=== PATIENT | male | born 1960 | race Two or more races ===

== ENCOUNTER 2024-01-05 18:04 | Emergency (ER) | payer OTHER ==
[~2024-01-05] VITALS: Ht 172.7 cm; Wt 78.2 kg
[2024-01-05 18:25] VITALS: O2SAT 98
[2024-01-05 18:32] LABS: Urine Bacteria None Seen /hpf (None Seen)
[2024-01-05 18:45] LABS: Urine Blood TRACE /uL (Negative); Urine Clarity Clear (Clear); Urine Color Light-Yellow (Yellow); Urine Protein, UAD Negative (Negative); Urine Specific Gravity 1.016 (1.001-1.035); Urine Urobilinogen Normal (Negative); Urine WBC 2 /hpf (0 - 3); Urine pH 5.5 (5.0-9.0)
[2024-01-05 22:12] VITALS: BP 138/72; PULSE 93; RESP 17; TEMP 98.3
== END 2024-01-05 22:53 | disposition home or self-care (01) ==
LOC: ER 18:04
DX: R33.9 Retention of urine, unspecified (principal); I12.9 Hypertensive chronic kidney disease with stage 1 through stage 4 chronic kidney disease, or unspecified chronic kidney disease; N18.9 Chronic kidney disease, unspecified
CPT/HCPCS: 51702; 81001

== ENCOUNTER 2024-01-25 10:39 | Emergency (ER) | payer OTHER ==
[~2024-01-25] VITALS: Ht 172.7 cm; Wt 78.8 kg
[2024-01-25 11:08] LABS: Urine Bacteria None Seen /hpf (None Seen)
[2024-01-25 11:13] LABS: Urine Blood 1+ /uL (Negative); Urine Clarity Clear (Clear); Urine Color Colorless (Yellow); Urine Protein, UAD Negative (Negative); Urine Specific Gravity 1.004 (1.001-1.035); Urine Urobilinogen Normal (Negative); Urine WBC <1 /hpf (0 - 3); Urine pH 6.5 (5.0-9.0)
[2024-01-25] MEDS: KETOROLAC TROMETH 60MG/2ML VIAL IM ONE (11:16)
[2024-01-25 11:40] LABS: Basophils # (auto) 0 10 ^3/uL (0-0.2); Basophils % (auto) 0.5 % (0.0-2.0); Eosinophils # (auto) 0.1 10 ^3/uL (0-0.8); Eosinophils % (auto) 0.9 % (0.0-7.0); Hematocrit 42.8 % (41.0-53.0); Hemoglobin 14.5 g/dL (13.5-17.5); Lymphocytes # (auto) 1.1 10 ^3/uL (0.4-5.4); Lymphocytes % (auto) 17.9 % (10.0-50.0); Mean Corpuscular Hemoglobin 31.5 pg (28.0-32.0); Mean Corpuscular Hgb Conc. 33.9 g/dL (32.0-36.0); Mean Corpuscular Volume 92.8 fL (80.0-100.0); Monocytes # (auto) 0.6 10 ^3/uL (0-1.3); Monocytes % (auto) 10.2 % (0.0-12.0); Neutrophils # (auto) 4.4 10 ^3/uL (1.6-8.6); Neutrophils % (auto) 70.5 % (37.0-80.0); Nucleated Red Blood Cells % 0.1 %; Red Blood Cells 4.61 10^6/uL (4.5-5.90); Red Cell Distribution Width 13.6 % (11.8-14.3); White Blood Cell 6.3 10^3/uL (4.4-10.8)
[2024-01-25 11:52] LABS: Alanine Aminotransferase 22 U/L (7-40); Albumin 4.6 g/dL (3.2-4.8); Alkaline Phosphatase 48 U/L (46-116); Anion Gap 6 (5-15); Aspartate Aminotransferase 21 U/L (13-40); BUN/Creatinine Ratio 10.7 (10.0-20.0); Blood Urea Nitrogen 12 mg/dL (9-23); Calcium 10.1 mg/dL (8.7-10.4); Carbon Dioxide 28 mmol/L (20-30); Chloride 97 mmol/L (98-107); Glucose 99 mg/dL (74-106); Lipase 47 U/L (12-53); Potassium 3.8 mmol/L (3.5-5.1); Sodium 131 mmol/L (136-145)
[2024-01-25 11:53] LABS: Bilirubin, Total 0.8 mg/dL (0.2-1.0); Total Protein 7.6 g/dL (5.7-8.2)
[2024-01-25] MEDS ORDERED: ZOFR4T PO (14:29)
[2024-01-25] MEDS ORDERED: NAP500T PO (14:29)
[2024-01-25 14:42] VITALS: BP 163/67; PULSE 82; RESP 18; TEMP 97.8; O2SAT 96
== END 2024-01-25 14:42 | disposition home or self-care (01) ==
LOC: ER 10:39
DX: R10.31 Right lower quadrant pain (principal); I12.9 Hypertensive chronic kidney disease with stage 1 through stage 4 chronic kidney disease, or unspecified chronic kidney disease; N18.9 Chronic kidney disease, unspecified
CPT/HCPCS: 36415; 74176; 80053; 81001; 83605; 83690; 85025; 93005; 96372; 99285; J1885

== ENCOUNTER 2025-02-24 19:55 | Inpatient (IN) | payer OTHER ==
[~2025-02-24] VITALS: Ht 172.7 cm; Wt 78.8 kg
[~2025-02-24 19:55] MED LIST: NAP500T PO; ZOFR4T PO
--- NOTE | 2025-02-24 20:04 | ED.PDOC ---
HPI Comments HPI: PMHx: PSHx: Allergies: NKDA Reji: HPI: Poor Historian. 64-year-old male presents to emergency department for evaluation of two day history of midsternal chest pain nonradiating. No alleviating or precipitating factors. Pain is associated with shortness of breath. Denies any other acute symptoms. He went to urgent care today and was sent here for further evaluation. Past Medical History: Hypertension, arthritis, chronic back pain, bladder cancer in remission, myasthenia gravis Past Surgical History: Kidney surgery, bladder and prostate surgery. REVIEW OF SYSTEMS: CONSTITUTIONAL: Denies acute: fever, diaphoresis, chills, generalized weakness. HEAD: Denies acute: headache, photophobia Eyes: Denies acute: Double vision, vision loss, eye pain, eye discharge. EARS: Denies acute: tinnitus, hearing loss, ear discharge, ear pain, THROAT: Denies acute: sore throat, swelling, difficulty swallowing , pain with swallowing, change in voice. NECK: Denies acute: neck pain, neck swelling, stiff neck. HEART: Denies acute : palpitations, LUNGS: Denies acute: , wheezing, cough, hemoptysis ABDOMEN: Denies acute: abdominal pain, Nausea, Vomiting, diarrhea, melena , hematemesis, hematochezia SKIN: Denies acute: rash, redness, lesions, itchiness. EXTREMITIES: Denies acute: calf pain, numbness, tingling, weakness, denies pain in extremity. Denies acute: Low back pain. Neuro: Denies acute: focal neurological deficit, motor or sensory focal neurological d eficit, tremors, seizure like activity, confusion, dizziness, change in mental status, loss of bowel or bladder function, cauda equina like symptoms. : Denies acute: dysuria, hematuria, flank pain, increase in urinary frequency. PSYCH: Denies acute: hallucination, suicidal ideation, homicidal ideation. PHYSICAL EXAM: General: ---mild-----acute distress, awake and alert. Head: normocephalic, atraumatic. Neck: supple, trachea is midline, no swelling. Throat: Normal phonation. Eyes:, no erythema, no purulent discharge, no proptosis, no icterus. Heart: regular rate, regular rhythm, no significant murmur appreciated. Lungs: no apparent respiratory distress, Able to speak in full sentences. No wheezing, no rhonchi, no crackles. No stridors Clear to auscultation bilaterally. Abdomen: non tender to palpation, non distended, soft, no guarding, no rebound, + bowel sounds. Neuro: Awake, Alert, oriented to name, self, situation, follows commands GCS=15. Speech is normal. Skin: no petechia, no purpura, no cyanosis, non-pale, not jaundice. Lower extremities: --no - Pitting edema no deformity, no focal swelling, no calf TTP. Makes eye contact. moves all four extremities. Face: no apparent facial droop. Ambulating in the ED independently. ED COURSE: At this time 12:21 a.m. our, The case was discussed with the admitting team (HPI, physical exam, labs and diagnostic tests that were available at the time of disposition, ED course, treatment plan) on the phone. They agreed to evaluate the patient and assume care of this patient from this point forward. Razia Guadalupe Time Seen by : 20:03 Primary Care Provider: UNKNOWN Reviewed Notes: Medications, Allergies Allergies: Coded Allergies: NO KNOWN ALLERGIES (Unverified , 01/05/24) Home Meds Active Scripts Ondansetron Odt 4MG Tab (ZOFRAN PO) 4 Mg Tb, 4 MG PO Q8HR, #15 TAB ODT TAB-DISSOLVE IN MOUTH, THEN SWALLOW Prov:ELANA CABELLO MD 01/25/24 Naproxen (NAPROSYN TABLET) 500 Mg Tb, 1 TAB PO BID PRN, #20 TAB 1 Refill Prov:ELANA CABELLO MD 01/25/24 Information Source: Patient Past Medical History PAST MEDICAL HISTORY: Cancer, CKF, Gallstones, HTN Family History Family History: Family hx of Cancer Social History Smoker: Non-Smoker Alcohol: Denies ETOH Use Drugs: Denies Drug Use Lives In: Home Was a procedure done? Was a procedure done?: No CP Differential Dx Differential Diagnosis: N/A Differential Diagnosis: Other (Ddx include but not limitied to gastritis, musculoskeletal pain, radiculopathy, atypical chest pain, dissection, aneurysm, ACS, unstable angina, hiatal hernia, GERD, anxiety, costochondritis, PE, pneumothroax, neoplasm, cardiac ischemia, drug abuse, anemia.) X-Ray, Labs, Meds, VS Vital Signs Date Time Temp Pulse Resp B/P (MAP) Pulse Ox O2 Delivery O2 Flow Rate FiO2 02/24/25 23:35 97.5 68 20 142/69 (93) 97 97.5 02/24/25 22:30 147/103 02/24/25 22:08 98.1 73 20 147/103 (118) 97 98.1 02/24/25 20:58 72 16 96 Room Air* 0 21 02/24/25 20:58 98.4 72 13 160/79 (106) 96 98.4 02/24/25 20:12 97.7 72 16 155/78 (103) 90 97.7 Lab Test 02/24/25 23:01 02/24/25 21:05 02/24/25 20:48 02/24/25 20:06 Range/Units Troponin I High Sensitivity 34 32 33 </=54 ng/L Urine Color Light-yellow Yellow Urine Clarity Clear Clear Urine pH 6.5 5.0-9.0 Urine Specific [place] 1.015 1.001-1.035 Urine Protein Negative Negative Urine Ketones Negative Negative Urine Blood 1+ H Negative /uL Urine Nitrite Negative Negative Urine Bilirubin Negative Negative Urine Urobilinogen Normal Negative mg/dL Urine Leukocyte Esterase Negative Negative /uL Urine RBC 10 0 - 3 /hpf Urine Microscopic WBC < 1 0-3 /HPF Urine Squamous Epithelial Cells Few <5 /hpf Urine Bacteria None seen None Seen /hpf Urine Glucose Normal Normal mg/dL White Blood Count 7.0 4.4-10.8 10^3/uL Red Blood Count 4.73 4.5-5.90 10^6/uL Hemoglobin 15.4 13.5-17.5 g/dL Hematocrit 44.3 41.0-53.0 % Mean Corpuscular Volume 93.6 80.0-100.0 fL Mean Corpuscular Hemoglobin 32.5 H 28.0-32.0 pg Mean Corpuscular Hemoglobin Concent 34.7 32.0-36.0 g/dL Red Cell Distribution Width 14.5 H 11.8-14.3 % Platelet Count 185 140-450 10^3/uL Mean Platelet Volume 8.2 6.9-10.8 fL Neutrophils (%) (Auto) 60.2 37.0-80.0 % Lymphocytes (%) (Auto) 24.4 10.0-50.0 % Monocytes (%) (Auto) 11.0 0.0-12.0 % Eosinophils (%) (Auto) 3.7 0.0-7.0 % Basophils (%) (Auto) 0.7 0.0-2.0 % Neutrophils # (Auto) 4.2 1.6-8.6 10 ^3/uL Lymphocytes # (Auto) 1.7 0.4-5.4 10 ^3/uL Monocytes # (Auto) 0.8 0-1.3 10 ^3/uL Eosinophils # (Auto) 0.3 0-0.8 10 ^3/uL Basophils # (Auto) 0 0-0.2 10 ^3/uL Nucleated Red Blood Cells 0.1 % Sodium Level 140 136-145 mmol/L Potassium Level 3.7 3.5-5.1 mmol/L Chloride Level 104 98-107 mmol/L Carbon Dioxide Level 28 20-31 mmol/L Anion Gap 8 5-15 Blood Urea Nitrogen 20 9-23 mg/dL Creatinine 1.11 0.700-1.30 mg/dL Glomerular Filtration Rate Calc 74 >90 mL/min BUN/Creatinine Ratio 18.0 10.0-20.0 Serum Glucose 99 74-106 mg/dL Calcium Level 10.9 H 8.7-10.4 mg/dL Total Bilirubin 0.6 0.2-1.0 mg/dL Aspartate Amino Transferase (AST) 25 13-40 U/L Alanine Aminotransferase (ALT) 28 7-40 U/L Alkaline Phosphatase 60 46-116 U/L B-Type Natriuretic Peptide 17.05 0-100 pg/mL Total Protein 7.7 5.7-8.2 g/dL Albumin 4.8 3.2-4.8 g/dL Current Medications Medications (Trade) Dose Ordered Sig/Racquel Route Start Time Stop Time Status Last Admin Hydralazine HCl (Apresoline Tablet) 25 mg ONCE ONCE PO 02/24/25 21:45 02/24/25 21:57 DC 02/24/25 22:30 Acetaminophen/ Hydrocodone Bitart ([place] 5/325MG Tab) 1 tab ONCE ONCE PO 02/25/25 00:00 02/25/25 00:01 DC 02/25/25 00:02 [place] [address] Ph: [phone] DIAGNOSTIC IMAGING Diagnostic Imaging Report : [id number] Signed PATIENT: SILVIA JONES EACCT: [id number] UNIT: [id number] : 1960 LOC: ER ROOM / BED: / AGE / SEX: 64 / M ADM STATUS: REG ER SERVICE 08 ORDERING PHYSICIAN: ERIKA SANCHEZ DO PROCEDURE(s): CXRP - CHEST PORTABLE REASON: cp ORDER NUMBER(s): [id number], ACCESSION NUMBER(s): [id number] CHEST RADIOGRAPH Indication: cp Technique: Single frontal view of the chest was obtained Comparison: None FINDINGS: Lines and Tubes: None Lungs: No focal consolidation. Pleura: No effusion. No pneumothorax. Cardiomediastinal contours: Unremarkable Bones: No acute osseous abnormality. IMPRESSION: 1. No acute cardiopulmonary disease. ATED BY: MORALES GOMEZ Jr., DO DICTATED DATE/TIME: 02/24/252034 SIGNED BY: MORALES GOMEZ Jr., SIGNED DATE/TIME: 02/24/252034 CC: Time of 1ST Reevaluation: 20:33 Reevaluation 1ST: Unchanged Time of 2ND Reevaluation: 21:07 (The case was discussed with the admitting team (HPI, physical exam, labs and diagnostic tests that were available at the time of disposition, ED course, treatment plan) on the phone. They will assume care of this patient from this point forward. --- Kiko) Time of 3RD Reevaluation: 23:56 (I was just notified that the patient insurance has changed and it is not [employer] but it is insurance choice. We are reaching out to the admitting team for that particular insurance.) Patient Education/Counseling: Diagnosis, Treatment Family Education/Counseling: No Family Present Comments Patient presented with the above HPI.---chest pain and shortness of breath---workup was initiated. patient was found with the above mentioned diagnosis. the following medications were ordered: please refer to order lists of meds and tests obtained by myself Dr. Sanchez. Patient ED course and VS have been stabilized. Patient has been reassessed in the ED and remained in a stable condition. Pertinent incidental findings were discussed with the patient and/or family. Patient/family voices understanding and is agreeable with plan. Patient has been observed in the ED adequate length of time to insure improvement/stability. Escalation of care considered: Consideration of escalation to observation or admission I discussed the case with Dr. Hoover on the phone and recommended to admit the patient to the hospital for further evaluation and treatment of their presentation. Dr. Hoover said that she will most likely discharge the patient home for outpatient follow up if his 2nd troponin is normal. Please see her consultation disposition note. Later I discussed the case with the ACETYLENE OPERATOR Anayeli. She sounded most likely that she will discharge the patient home. Please see her consultation notes and final disposition. All the reports of any imaging studies that were ordered by myself were reviewed by myself. Departure 1 Departure Time of Disposition: 20:31 Impression: Primary Impression: Chest pain Disposition: 09 ADMITTED INPATIENT Admit to: Tele Condition: Guarded Discharged With: Self Critical Care Note Critical Care Time?: No Heart Score Heart Score: Heart Score Response (Comments) Value History Moderate Suspicious 1 EKG Normal 0 Age 45-64 1 Risk Factors 1 or 2 risk factors 1 Troponin Normal limit 0 Total 3 I personally scribed for ERIKA SANCHEZ DO ([email or web address]) on 02/24/25 at 20:04. Electronically submitted by Aris Whitfield ([email or web address]). ERIKA SANCHEZ DO February 24, 2025 20:04
[2025-02-24] MEDS: ASPirin-EC 325mg tab PO ONE (20:15)
[2025-02-24] MEDS: NITROGLYCERIN 0.4 MG SL TAB SL ONE (20:15)
[2025-02-24 20:23] LABS: Basophils # (auto) 0 10 ^3/uL (0-0.2); Basophils % (auto) 0.7 % (0.0-2.0); Eosinophils # (auto) 0.3 10 ^3/uL (0-0.8); Eosinophils % (auto) 3.7 % (0.0-7.0); Hematocrit 44.3 % (41.0-53.0); Hemoglobin 15.4 g/dL (13.5-17.5); Lymphocytes # (auto) 1.7 10 ^3/uL (0.4-5.4); Lymphocytes % (auto) 24.4 % (10.0-50.0); Mean Corpuscular Hemoglobin 32.5 pg (28.0-32.0); Mean Corpuscular Hgb Conc. 34.7 g/dL (32.0-36.0); Mean Corpuscular Volume 93.6 fL (80.0-100.0); Monocytes # (auto) 0.8 10 ^3/uL (0-1.3); Neutrophils # (auto) 4.2 10 ^3/uL (1.6-8.6); Neutrophils % (auto) 60.2 % (37.0-80.0); Nucleated Red Blood Cells % 0.1 %; Platelet Count (auto) 185 10^3/uL (140-450); Red Blood Cells 4.73 10^6/uL (4.5-5.90); Red Cell Distribution Width 14.5 % (11.8-14.3)
[2025-02-24 20:33] LABS: Alanine Aminotransferase 28 U/L (7-40); Alkaline Phosphatase 60 U/L (46-116); Anion Gap 8 (5-15); Aspartate Aminotransferase 25 U/L (13-40); Bilirubin, Total 0.6 mg/dL (0.2-1.0); Blood Urea Nitrogen 20 mg/dL (9-23); Carbon Dioxide 28 mmol/L (20-31); Chloride 104 mmol/L (98-107); Glucose 99 mg/dL (74-106); Potassium 3.7 mmol/L (3.5-5.1); Sodium 140 mmol/L (136-145); Total Protein 7.7 g/dL (5.7-8.2)
--- NOTE | 2025-02-24 20:38 | DVH ---
CHEST RADIOGRAPH Indication: cp Technique: Single frontal view of the chest was obtained Comparison: None FINDINGS: Lines and Tubes: None Lungs: No focal consolidation. Pleura: No effusion. No pneumothorax. Cardiomediastinal contours: Unremarkable Bones: No acute osseous abnormality. IMPRESSION: 1. No acute cardiopulmonary disease.
[2025-02-24 20:39] LABS: Albumin 4.8 g/dL (3.2-4.8); Calcium 10.9 mg/dL (8.7-10.4)
[2025-02-24 20:55] LABS: Urine Bacteria None Seen /hpf (None Seen)
[2025-02-24 20:58] VITALS: PULSE 72; RESP 16; O2SAT 96
[2025-02-24 21:03] LABS: Urine Blood 1+ /uL (Negative); Urine Clarity Clear (Clear); Urine Color Light-Yellow (Yellow); Urine Protein, UAD Negative (Negative); Urine Specific Gravity 1.015 (1.001-1.035); Urine Squamous Epithelial Cell FEW /hpf (<5); Urine Urobilinogen Normal (Negative); Urine WBC < 1 /HPF (0-3); Urine pH 6.5 (5.0-9.0)
[2025-02-24] MEDS: hydrALAZINE HCL 25 MG TAB PO ONE (22:30)
[2025-02-25] MEDS: HYDROcodone-ACET 5/325MG TAB PO ONE (00:02)
[2025-02-25] MEDS ORDERED: NITROGLYCERIN 0.4 MG SL TAB SL PRN (02:30)
[2025-02-25] MEDS ORDERED: ACETAMINOPHEN 325 MG TAB PO PRN (02:30)
[2025-02-25] MEDS ORDERED: MORPHINE SULFATE INJ 2 MG/ml SYRG IV PRN (02:30)
--- NOTE | 2025-02-25 02:42 | DVHHP2 ---
Admitting Diagnosis: Chest pain r/o ACS History of Present Illness History Source: Patient Exam Limitations: No limitations HPI Mr. Joe Mendoza is a 64-year-old male with a history of bladder cancer in remission, hypertension, arthritis, chronic back pain, presents with a chief complaint of two day history of midsternal chest pain nonradiating. No alleviating or precipitating factors. Pain is associated with shortness of breath, also reports occasional dizziness. He went to urgent care yesterday and was sent to the hospital for further evaluation. Patient reports a cardiac family history of mom with CABG surgery. Patient reports chest pain has worsen ed. Home Meds Active Scripts Ondansetron Odt 4MG Tab (ZOFRAN PO) 4 Mg Tb, 4 MG PO Q8HR, #15 TAB ODT TAB-DISSOLVE IN MOUTH, THEN SWALLOW Prov:ELANA CABELLO MD 01/25/24 Reported Medications Lisinopril (Lisinopril) 20 Mg Tab, 1 TAB PO DAILY, #30 TAB 5 Refills 02/25/25 Morphine Sulfate (Morphine Sulfate) 15 Mg Tab, 10 MG PO, TAB 02/25/25 Past Medical History Cardiac: HTN Musculoskeletal: Chronic low back pain, Other (arthritis) Others bladder cancer in remission Smoker: No Hx (Negative) Alocohol: Occassional Drugs: None Domestic Violence: Neg Review of Systems Constitutional: No symptom reported Ears, Nose, & Throat: No symptom reported Eyes: No symptom reported Pulmonary/Respiratory: Dyspnea Cardiovascular: Chest Pain Gastrointestinal: No symptom reported Genitourinary: No symptom reported Musculoskeletal: No symptom reported Skin: No symptom reported Psychiatric: No symptom reported Endocrine: No symptom reported Hemotologic/Lymphatic: No symptom reported H&P Exam Vital Signs Vital Signs Date Time Temp Pulse Resp B/P (MAP) Pulse Ox O2 Delivery O2 Flow Rate FiO2 02/24/25 23:35 97.5 68 20 142/69 (93) 97 97.5 02/24/25 20:58 Room Air* 0 21 General Appeara: Well developed, Well nourished, Normal Appearance Head Exam: Normal inspection Neck Exam: Normal inspection, Non-tender Eye Exam: bilateral eye Normal inspection, bilateral eye PERRL, bilateral eye EOMI Ear Exam: bilateral ear Auricle normal Nasal Exam: Normal inspection Mouth: Normal Inspection Pulmonary/Respiratory: Normal inspection, Normal breath sounds, Chest non- tender, Lungs clear Cardiovascular/Chest: Normal inspection, Regular rate, Normal Rhythm Peripheral Pulses: 2+ dorsalis pedis (R), 2+ dorsalis pedis (L), 2+ Radial (R), 2+ Radial (L) Abdominal Exam: Normal bowel sounds, Soft, No tenderness Rectal Exam: Deferred Back Exam: Normal inspection Male Genital Exam: Not done 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 Exam: Normal hearing, Normal speech, PERRL Neuro/Mental St: Alert, Oriented Appearance: Appropriate appearance, Appropriate insight Eye contact/ Speech: Cooperative, Good eye contact, Normal speech Thoughts/Psych: Normal thought pattern Skin Exam: Normal inspection, Normal color, Warm/dry Labs/Xrays Labs Test 02/24/25 23:01 02/24/25 20:48 02/24/25 20:06 Range/Units Troponin I High Sensitivity 34 </=54 ng/L Urine Color Light-yellow Yellow Urine Clarity Clear Clear Urine pH 6.5 5.0-9.0 Urine Specific [place] 1.015 1.001-1.035 Urine Protein Negative Negative Urine Ketones Negative Negative Urine Blood 1+ H Negative /uL Urine Nitrite Negative Negative Urine Bilirubin Negative Negative Urine Urobilinogen Normal Negative mg/dL Urine Leukocyte Esterase Negative Negative /uL Urine RBC 10 0 - 3 /hpf Urine Microscopic WBC < 1 0-3 /HPF Urine Squamous Epithelial Cells Few <5 /hpf Urine Bacteria None seen None Seen /hpf Urine Glucose Normal Normal mg/dL White Blood Count 7.0 4.4-10.8 10^3/uL Red Blood Count 4.73 4.5-5.90 10^6/uL Hemoglobin 15.4 13.5-17.5 g/dL Hematocrit 44.3 41.0-53.0 % Mean Corpuscular Volume 93.6 80.0-100.0 fL Mean Corpuscular Hemoglobin 32.5 H 28.0-32.0 pg Mean Corpuscular Hemoglobin Concent 34.7 32.0-36.0 g/dL Red Cell Distribution Width 14.5 H 11.8-14.3 % Platelet Count 185 140-450 10^3/uL Mean Platelet Volume 8.2 6.9-10.8 fL Neutrophils (%) (Auto) 60.2 37.0-80.0 % Lymphocytes (%) (Auto) 24.4 10.0-50.0 % Monocytes (%) (Auto) 11.0 0.0-12.0 % Eosinophils (%) (Auto) 3.7 0.0-7.0 % Basophils (%) (Auto) 0.7 0.0-2.0 % Neutrophils # (Auto) 4.2 1.6-8.6 10 ^3/uL Lymphocytes # (Auto) 1.7 0.4-5.4 10 ^3/uL Monocytes # (Auto) 0.8 0-1.3 10 ^3/uL Eosinophils # (Auto) 0.3 0-0.8 10 ^3/uL Basophils # (Auto) 0 0-0.2 10 ^3/uL Nucleated Red Blood Cells 0.1 % Sodium Level 140 136-145 mmol/L Potassium Level 3.7 3.5-5.1 mmol/L Chloride Level 104 98-107 mmol/L Carbon Dioxide Level 28 20-31 mmol/L Anion Gap 8 5-15 Blood Urea Nitrogen 20 9-23 mg/dL Creatinine 1.11 0.700-1.30 mg/dL Glomerular Filtration Rate Calc 74 >90 mL/min BUN/Creatinine Ratio 18.0 10.0-20.0 Serum Glucose 99 74-106 mg/dL Calcium Level 10.9 H 8.7-10.4 mg/dL Total Bilirubin 0.6 0.2-1.0 mg/dL Aspartate Amino Transferase (AST) 25 13-40 U/L Alanine Aminotransferase (ALT) 28 7-40 U/L Alkaline Phosphatase 60 46-116 U/L B-Type Natriuretic Peptide 17.05 0-100 pg/mL Total Protein 7.7 5.7-8.2 g/dL Albumin 4.8 3.2-4.8 g/dL Assessment/Plan Problem List: (1) Chest pain Plan This is a 64 yo male with known history of hypertension, arthritis, chronic back pain, bladder cancer in remission who presents from UC for evaluation of non radiating midsternal chest pain. 1. Chest Pain r/o ACS 2. Hypertension 3. Chronic back pain 4. Arthritis Plan Admit Telemetry Cardiology consultation, 2D echocardiogram, serial troponin levels, ASA, Statin Continue home medications when reconciled analgesics as needed Discussed all above with patient who verbalizes agreement and understanding of care plan. All questions were answered. Discussed assessment and care plan with supervising MD. Patient's chart is reviewed and discussed with the nurse. Patient is seen eval uated and admitted by nurse practitioner. I agree with her evaluation, documentation, assessment and care plan as outlined. Apparently patient does not belong to [facility]. I was called by the medical group to transfer patient's care to Dr. Aldair Pryor who will be managing this patient patient. I have discussed case/care with the Dr. Pryor who will be taking over patient's care from today and further manage is appropriate. Plan discussed with: Patient, Other Code Visit Code Visit Total Time (mins): 45 FRIDA MONROE February 25, 2025 02:42 DOMINGO KOTHARI MD February 25, 2025 12:58
[2025-02-25 03:29] LABS: Triglycerides 108 mg/dL (< 150)
[2025-02-25 03:30] LABS: LDL Cholesterol 74 mg/dL (< 100)
[2025-02-25 03:31] LABS: Cholesterol 149 mg/dL (< 200); HDL Cholesterol 58 mg/dL (40-59)
[2025-02-25] MEDS ORDERED: LISI20TA56 PO (07:03)
[2025-02-25] MEDS ORDERED: MORP15TA PO (07:03)
[2025-02-25 08:14] VITALS: BP 161/78; PULSE 75; RESP 15; TEMP 97.7; O2SAT 99
[2025-02-25] MEDS: ASPirin 81 mg TAB PO SCH (08:18)
[2025-02-25] MEDS: FAMOTIDINE 20 MG TAB PO SCH (08:18)
[2025-02-25] MEDS: HYDROcodone-ACET 5/325MG TAB PO PRN (08:19)
[2025-02-25 09:03] VITALS: BP 145/75; PULSE 62; RESP 16; TEMP 97.7; O2SAT 99
[2025-02-25] MEDS: hydrALAZINE HCL 20 MG/ML VL IV PRN (10:20)
--- NOTE | 2025-02-25 11:32 | DVHCONRES ---
Date Seen: February 25, 2025 Resident Creating Document: OPAL PISANO RESIDENT History of Present Illness Patient is a 64-year-old male with past medical history of bladder cancer in remission, hypertension, chronic back pain, questionable kidney issues and arthritis presented with complaints of seizures chest pain. On Friday, patient had chest pain which he describes as sharp, got resolved and again got chest pain yesterday which was sharp and pressure-like both, was midsternal, "was irritating the stomach", nonradiating, improved on walking, present on rest, associated with headache. Patient mentioned that he can walk for one block and not feel shortness of breath. Patient went to urgent care where he was told to go to the ER because of some abnormalities in the EKG. Patient is currently not mentioning of any active pain, denied shortness of breath, palpitation, orthopnea, PND, pedal edema. Patient had echocardiogram and stress test one year ago which was within normal limits. Past medical history Bladder cancer Arthritis Chronic back pain Questionable kidney issues Hypertension Past surgical history Surgery for bladder cancer August 2024 Family history Mother had VT status post CABG at 63 Hypertension and diabetes run in family Social history Quit smoking 25 years ago, was smoking for 20 years one pack per day Occasional alcohol use Denied marijuana or any other drug intake Medication history [place], morphine, lisinopril Family History: Patient reports no known family medical history. Allergies: Coded Allergies: NO KNOWN ALLERGIES (Unverified , 01/05/24) Home Meds Active Scripts Ondansetron Odt 4MG Tab (ZOFRAN PO) 4 Mg Tb, 4 MG PO Q8HR, #15 TAB ODT TAB-DISSOLVE IN MOUTH, THEN SWALLOW Prov:ELANA CABELLO MD 01/25/24 Reported Medications Lisinopril (Lisinopril) 20 Mg Tab, 1 TAB PO DAILY, #30 TAB 5 Refills 02/25/25 Morphine Sulfate (Morphine Sulfate) 15 Mg Tab, 10 MG PO, TAB 02/25/25 Current Medications Current Medications Medications (Trade) Dose Ordered Sig/Racquel Route PRN Reason Start Time Stop Time Status Last Admin Nitroglycerin (Ntrostat Sublingual) 0.4 mg Q5MINP PRN SL FOR CHEST PAIN 02/25/25 02:30 Morphine Sulfate 2 mg Q30M PRN IV FOR CHEST PAIN 02/25/25 02:30 Ondansetron HCl (Zofran) 4 mg Q6HPRN PRN IV NAUSEA / VOMITING 02/25/25 02:30 Aspirin 81 mg DAILY PO 02/25/25 10:00 02/25/25 08:18 Famotidine (Pepcid Tablet) 20 mg BID PO 02/25/25 10:00 02/25/25 08:18 Acetaminophen/ Hydrocodone Bitart ([place] 5/325MG Tab) 1 tab Q6HPRN PRN PO PAIN SCALE 1 THRU 6 02/25/25 02:30 02/25/25 08:19 Acetaminophen (Tylenol Tablet) 650 mg Q6HPRN PRN PO PAIN SCALE 1-3 OR TEMP>100.4 02/25/25 02:30 Atorvastatin Calcium (Lipitor) 40 mg HS PO 02/25/25 22:00 Hydralazine HCl (Apresoline Injection) 10 mg Q6HP PRN IV SBP>160 02/25/25 03:15 02/25/25 10:20 Morphine Sulfate (Oramorph Sustained Release Tab) 15 mg DAILY PO 02/25/25 12:00 Review of Systems As described in the HPI Vital Signs Vital Signs Date Time Temp Pulse Resp B/P (MAP) Pulse Ox O2 Delivery O2 Flow Rate FiO2 02/25/25 10:20 170/79 02/25/25 09:03 97.7 62 16 99 97.7 02/24/25 20:58 Room Air* 0 21 Physical Exam Examination General Appearance: Alert, Oriented X3, Cooperative, No acute distress HEENT: EOMI Respiratory: Clear to auscultation, Normal air movement Cardiovascular: Regular rate, Normal S1, Normal S2 Abdominal: Normal bowel sounds Extremities: No cyanosis, No edema, Normal pulses, No tenderness/swelling Skin: No rashes, No breakdown Neuro: Normal gait, Normal speech, Strength at 5/5 X4 ext, Normal tone, Sensation intact, Cranial nerves 3-12 NL, Reflexes 2+ Psych/Mental Status: Mental status NL, Mood NL Labs/Diagnostic Data Labs Test 02/25/25 06:21 02/24/25 23:01 02/24/25 20:48 02/24/25 20:06 Range/Units Troponin I High Sensitivity 31 </=54 ng/L Triglycerides Level 108 < 150 mg/dL Cholesterol Level 149 < 200 mg/dL LDL Cholesterol 74 < 100 mg/dL HDL Cholesterol 58 40-59 mg/dL Urine Color Light-yellow Yellow Urine Clarity Clear Clear Urine pH 6.5 5.0-9.0 Urine Specific [place] 1.015 1.001-1.035 Urine Protein Negative Negative Urine Ketones Negative Negative Urine Blood 1+ H Negative /uL Urine Nitrite Negative Negative Urine Bilirubin Negative Negative Urine Urobilinogen Normal Negative mg/dL Urine Leukocyte Esterase Negative Negative /uL Urine RBC 10 0 - 3 /hpf Urine Microscopic WBC < 1 0-3 /HPF Urine Squamous Epithelial Cells Few <5 /hpf Urine Bacteria None seen None Seen /hpf Urine Glucose Normal Normal mg/dL White Blood Count 7.0 4.4-10.8 10^3/uL Red Blood Count 4.73 4.5-5.90 10^6/uL Hemoglobin 15.4 13.5-17.5 g/dL Hematocrit 44.3 41.0-53.0 % Mean Corpuscular Volume 93.6 80.0-100.0 fL Mean Corpuscular Hemoglobin 32.5 H 28.0-32.0 pg Mean Corpuscular Hemoglobin Concent 34.7 32.0-36.0 g/dL Red Cell Distribution Width 14.5 H 11.8-14.3 % Platelet Count 185 140-450 10^3/uL Mean Platelet Volume 8.2 6.9-10.8 fL Neutrophils (%) (Auto) 60.2 37.0-80.0 % Lymphocytes (%) (Auto) 24.4 10.0-50.0 % Monocytes (%) (Auto) 11.0 0.0-12.0 % Eosinophils (%) (Auto) 3.7 0.0-7.0 % Basophils (%) (Auto) 0.7 0.0-2.0 % Neutrophils # (Auto) 4.2 1.6-8.6 10 ^3/uL Lymphocytes # (Auto) 1.7 0.4-5.4 10 ^3/uL Monocytes # (Auto) 0.8 0-1.3 10 ^3/uL Eosinophils # (Auto) 0.3 0-0.8 10 ^3/uL Basophils # (Auto) 0 0-0.2 10 ^3/uL Nucleated Red Blood Cells 0.1 % Sodium Level 140 136-145 mmol/L Potassium Level 3.7 3.5-5.1 mmol/L Chloride Level 104 98-107 mmol/L Carbon Dioxide Level 28 20-31 mmol/L Anion Gap 8 5-15 Blood Urea Nitrogen 20 9-23 mg/dL Creatinine 1.11 0.700-1.30 mg/dL Glomerular Filtration Rate Calc 74 >90 mL/min BUN/Creatinine Ratio 18.0 10.0-20.0 Serum Glucose 99 74-106 mg/dL Calcium Level 10.9 H 8.7-10.4 mg/dL Total Bilirubin 0.6 0.2-1.0 mg/dL Aspartate Amino Transferase (AST) 25 13-40 U/L Alanine Aminotransferase (ALT) 28 7-40 U/L Alkaline Phosphatase 60 46-116 U/L B-Type Natriuretic Peptide 17.05 0-100 pg/mL Total Protein 7.7 5.7-8.2 g/dL Albumin 4.8 3.2-4.8 g/dL Plan/Recommendation Assessment/plan # chest pain, noncardiac type -EKG shows no ST abnormality Normal trops -echo shows lvef 65% normal lv function normal rv function no severe valve abnormalities noted left atrium enlarged mild # bladder cancer # hypertension # chronic back pain Plan pt's chest pain is non cardiac type with non significant EKG, normal trops and normal echo Pt needs outpatient follow up with cardiology We will sign off from this case as of now, kindly reconsult if needed case discussion with DR KEYS pt seen with CV team normal echo pt had negative spect 1 year ago acs rueld out ecg stable fu with his cards this month he states Plan discussed with: Patient, Other OPAL PISANO RESIDENT February 25, 2025 11:32 JASMEET KEYS MD February 25, 2025 18:57
[2025-02-25] MEDS: MORPHINE SULF 15mg ER tab PO SCH (12:24)
[2025-02-25 12:25] VITALS: BP 145/72; PULSE 80; RESP 18; TEMP 98.7; O2SAT 100
[2025-02-25 13:17] VITALS: BP 121/65; PULSE 73; RESP 15; TEMP 98.7; O2SAT 99
[2025-02-25 17:53] VITALS: BP 154/73; PULSE 64; RESP 14; TEMP 97.4; O2SAT 98
--- NOTE | 2025-02-25 18:20 | DVHSR ---
APPROVED REPORT EXAM: Two-dimensional and M-mode echocardiogram with Doppler and color Doppler. Blood Pressure: 144/77 mmHg INDICATION Chest Pain RISK FACTORS Height: 68, Weight: 173 DIMENSIONS LVDd4.7 (3.8-5.7cm)LA (2D)4.5 (1.9-4.0cm)Aortic Root4.2 (2.0-3.7cm) LVDs3.1 (2.5-4.0cm)LA (MM) (1.9-4.0cm)Aortic Cusp Exc2.3 (1.5-2.0cm) EF (%) 63.0 (55-70%)Rt. Atrium3.6 (1.9-4.0cm)Asc. Aorta cm IVSd0.9 (0.7-1.1cm)RV (D) (1.8-2.4cm) PWd1.2 (0.7-1.1cm) Mitral Valve MitralMitral Stenosis E wave0.58m/sMV Mean GR.mmHg A wave0.64m/sMV Peak GR.47mmHg E/A ratio0.92D MVAcm2 DECEL [id number] 1/2 [id number] IVRTmsDop MVA4.55cm2 Aortic Valve Aortic ValveAortic Stenosis V11.05m/Puneet Mean GR.3mmHg V21.14m/Puneet Peak GR.5mmHg LVOT Diameter2.2 (1.8-2.4cm)Doppler AVA3.50cm2 Pulmonic Valve V20.75m/s Tricuspid Valve TR Velocity1.79m/s [id number] Conclusion lvef 65% normal lv function normal rv function no severe valve abnormalities noted left atrium enlarged mild
[2025-02-25] MEDS: ONDANSETRON HCL 4 MG/2 ML VIAL IV PRN (20:23)
--- NOTE | 2025-02-25 20:31 | ECG ---
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
[2025-02-25 20:45] VITALS: BP 142/75; PULSE 74; RESP 14; TEMP 97.8; O2SAT 97
[2025-02-25] MEDS: ATORVASTATIN 20 MG TAB PO SCH (22:33)
--- NOTE | 2025-02-25 22:43 | DVHINCON2 ---
Date of service: February 25, [address] Andrews Reason for Consultation Transfer of care History of Present Illness Joe Mendoza is a 64-year-old male with a Past Medical History pertinent for Bladder cancer in remission, Hypertension, Arthritis, Chronic back pain who presented to the hospital with complaint of midsternal chest pain nonradiating x two days. No alleviating or precipitating factors. Patient reports pain is associated with shortness of breath. Also endorses occasional dizziness. Patient was admitted under the care of Dr. Andrews with services transferred today. Patient was evaluated by cardiology. Patient's chest pain noted as non cardiac type. Echocardiogram showed LV EF 65%; normal LV function; normal RV function; no severe valve abnormalities noted; left atrium enlarged mild. EKG was non- significant. Troponin levels were monitored and remained negative. Family History: Patient reports no known family medical history. Family History Patient reports a cardiac family history of mom with CABG surgery. Allergies: Coded Allergies: NO KNOWN ALLERGIES (Unverified , 01/05/24) Home Meds Active Scripts Ondansetron Odt 4MG Tab (ZOFRAN PO) 4 Mg Tb, 4 MG PO Q8HR, #15 TAB ODT TAB-DISSOLVE IN MOUTH, THEN SWALLOW Prov:ELANA CABELLO MD 01/25/24 Reported Medications Lisinopril (Lisinopril) 20 Mg Tab, 1 TAB PO DAILY, #30 TAB 5 Refills 02/25/25 Morphine Sulfate (Morphine Sulfate) 15 Mg Tab, 10 MG PO, TAB 02/25/25 Current Medications Current Medications Medications (Trade) Dose Ordered Sig/Racquel Route PRN Reason Start Time Stop Time Status Last Admin Nitroglycerin (Ntrostat Sublingual) 0.4 mg Q5MINP PRN SL FOR CHEST PAIN 02/25/25 02:30 Morphine Sulfate 2 mg Q30M PRN IV FOR CHEST PAIN 02/25/25 02:30 Ondansetron HCl (Zofran) 4 mg Q6HPRN PRN IV NAUSEA / VOMITING 02/25/25 02:30 02/25/25 20:23 Aspirin 81 mg DAILY PO 02/25/25 10:00 02/25/25 08:18 Famotidine (Pepcid Tablet) 20 mg BID PO 02/25/25 10:00 02/25/25 22:33 Acetaminophen/ Hydrocodone Bitart ([place] 5/325MG Tab) 1 tab Q6HPRN PRN PO PAIN SCALE 1 THRU 6 02/25/25 02:30 02/25/25 19:05 Acetaminophen (Tylenol Tablet) 650 mg Q6HPRN PRN PO PAIN SCALE 1-3 OR TEMP>100.4 02/25/25 02:30 Atorvastatin Calcium (Lipitor) 40 mg HS PO 02/25/25 22:00 02/25/25 22:33 Hydralazine HCl (Apresoline Injection) 10 mg Q6HP PRN IV SBP>160 02/25/25 03:15 02/25/25 10:20 Morphine Sulfate (Oramorph Sustained Release Tab) 15 mg DAILY PO 02/25/25 12:00 02/25/25 12:24 Review of Systems Pulmonary/Respiratory: Dyspnea Cardiovascular: Chest Pain All other systems reviewed and negative unless otherwise noted in HPI. Vital Signs Vital Signs Date Time Temp Pulse Resp B/P (MAP) Pulse Ox O2 Delivery O2 Flow Rate FiO2 02/25/25 20:45 97.8 74 14 142/75 (97) 97 97.8 02/24/25 20:58 Room Air* 0 21 Physical Exam Vitals and nursing notes reviewed. General Appearance: Cooperative, No acute distress HEENT: NC/AT. EOMI Respiratory: Clear to auscultation, Normal air movement Cardiovascular: Regular rate, Normal S1, Normal S2 Abdominal: Normal bowel sounds. Non-distended, non-tender. Extremities: No cyanosis, No edema, Normal pulses, No tenderness/swelling Skin: No rashes, No breakdown Neuro: Alert, Oriented X3, Normal gait, Strength at 01/31 X4 ext Psych/Mental Status: Mental status NL, Mood NL Labs/Diagnostic Data Labs Test 02/25/25 18:57 02/24/25 23:01 02/24/25 20:48 02/24/25 20:06 Range/Units Troponin I High Sensitivity 34 </=54 ng/L Triglycerides Level 108 < 150 mg/dL Cholesterol Level 149 < 200 mg/dL LDL Cholesterol 74 < 100 mg/dL HDL Cholesterol 58 40-59 mg/dL Urine Color Light-yellow Yellow Urine Clarity Clear Clear Urine pH 6.5 5.0-9.0 Urine Specific [place] 1.015 1.001-1.035 Urine Protein Negative Negative Urine Ketones Negative Negative Urine Blood 1+ H Negative /uL Urine Nitrite Negative Negative Urine Bilirubin Negative Negative Urine Urobilinogen Normal Negative mg/dL Urine Leukocyte Esterase Negative Negative /uL Urine RBC 10 0 - 3 /hpf Urine Microscopic WBC < 1 0-3 /HPF Urine Squamous Epithelial Cells Few <5 /hpf Urine Bacteria None seen None Seen /hpf Urine Glucose Normal Normal mg/dL White Blood Count 7.0 4.4-10.8 10^3/uL Red Blood Count 4.73 4.5-5.90 10^6/uL Hemoglobin 15.4 13.5-17.5 g/dL Hematocrit 44.3 41.0-53.0 % Mean Corpuscular Volume 93.6 80.0-100.0 fL Mean Corpuscular Hemoglobin 32.5 H 28.0-32.0 pg Mean Corpuscular Hemoglobin Concent 34.7 32.0-36.0 g/dL Red Cell Distribution Width 14.5 H 11.8-14.3 % Platelet Count 185 140-450 10^3/uL Mean Platelet Volume 8.2 6.9-10.8 fL Neutrophils (%) (Auto) 60.2 37.0-80.0 % Lymphocytes (%) (Auto) 24.4 10.0-50.0 % Monocytes (%) (Auto) 11.0 0.0-12.0 % Eosinophils (%) (Auto) 3.7 0.0-7.0 % Basophils (%) (Auto) 0.7 0.0-2.0 % Neutrophils # (Auto) 4.2 1.6-8.6 10 ^3/uL Lymphocytes # (Auto) 1.7 0.4-5.4 10 ^3/uL Monocytes # (Auto) 0.8 0-1.3 10 ^3/uL Eosinophils # (Auto) 0.3 0-0.8 10 ^3/uL Basophils # (Auto) 0 0-0.2 10 ^3/uL Nucleated Red Blood Cells 0.1 % Sodium Level 140 136-145 mmol/L Potassium Level 3.7 3.5-5.1 mmol/L Chloride Level 104 98-107 mmol/L Carbon Dioxide Level 28 20-31 mmol/L Anion Gap 8 5-15 Blood Urea Nitrogen 20 9-23 mg/dL Creatinine 1.11 0.700-1.30 mg/dL Glomerular Filtration Rate Calc 74 >90 mL/min BUN/Creatinine Ratio 18.0 10.0-20.0 Serum Glucose 99 74-106 mg/dL Calcium Level 10.9 H 8.7-10.4 mg/dL Total Bilirubin 0.6 0.2-1.0 mg/dL Aspartate Amino Transferase (AST) 25 13-40 U/L Alanine Aminotransferase (ALT) 28 7-40 U/L Alkaline Phosphatase 60 46-116 U/L B-Type Natriuretic Peptide 17.05 0-100 pg/mL Total Protein 7.7 5.7-8.2 g/dL Albumin 4.8 3.2-4.8 g/dL Assessment Chest Pain Hypertension Chronic back pain Arthritis Plan/Recommendation Admitted to inpatient. Monitored in Telemetry. Cardiology consulted. ACS ruled out. Recommended for outpatient follow up with cardiology. ASA and Statin therapy. Pepcid 20 mg PO daily. Pain management prn. Cardiac diet. Additional plan as per the hospital course. Plan discussed with: Patient, Other (RN) SIMONE JORGE DO February 25, 2025 22:43
[2025-02-26 01:00] VITALS: BP 149/87; PULSE 79; RESP 18; TEMP 97.6; O2SAT 97
[2025-02-26 05:00] VITALS: BP 101/54; PULSE 62; RESP 17; TEMP 97.6; O2SAT 98
[2025-02-26 08:00] VITALS: PULSE 74; PULSE 78; RESP 19; O2SAT 97
[2025-02-26 09:18] VITALS: BP 132/71; PULSE 74; RESP 19; TEMP 97.9; O2SAT 97
[2025-02-26 11:50] VITALS: BP 141/70; PULSE 78; RESP 17; TEMP 98.4; O2SAT 98
--- NOTE | 2025-02-26 21:12 | DVHDS2 ---
Discharge Summary Date of Admission February 25, 2025 at 02:28 Date of Discharge: February 26, 2025 Admitting Diagnosis Chest pain Labs/Diagnostic Data: Laboratory Results Test 02/25/25 18:57 02/24/25 23:01 02/24/25 20:48 02/24/25 20:06 Troponin I High Sensitivity 34 ng/L (</=54) Triglycerides Level 108 mg/dL (< 150) Cholesterol Level 149 mg/dL (< 200) LDL Cholesterol 74 mg/dL (< 100) HDL Cholesterol 58 mg/dL (40-59) Urine Color Light-yellow (Yellow) Urine Clarity Clear (Clear) Urine pH 6.5 (5.0-9.0) Urine Specific [place] 1.015 (1.001-1.035) Urine Protein Negative (Negative) Urine Ketones Negative (Negative) Urine Blood 1+ /uL (Negative) Urine Nitrite Negative (Negative) Urine Bilirubin Negative (Negative) Urine Urobilinogen Normal mg/dL (Negative) Urine Leukocyte Esterase Negative /uL (Negative) Urine RBC 10 /hpf (0 - 3) Urine Microscopic WBC < 1 /HPF (0-3) Urine Squamous Epithelial Cells Few /hpf (<5) Urine Bacteria None seen /hpf (None Seen) Urine Glucose Normal mg/dL (Normal) White Blood Count 7.0 10^3/uL (4.4-10.8) Red Blood Count 4.73 10^6/uL (4.5-5.90) Hemoglobin 15.4 g/dL (13.5-17.5) Hematocrit 44.3 % (41.0-53.0) Mean Corpuscular Volume 93.6 fL (80.0-100.0) Mean Corpuscular Hemoglobin 32.5 pg (28.0-32.0) Mean Corpuscular Hemoglobin Concent 34.7 g/dL (32.0-36.0) Red Cell Distribution Width 14.5 % (11.8-14.3) Platelet Count 185 10^3/uL (140-450) Mean Platelet Volume 8.2 fL (6.9-10.8) Neutrophils (%) (Auto) 60.2 % (37.0-80.0) Lymphocytes (%) (Auto) 24.4 % (10.0-50.0) Monocytes (%) (Auto) 11.0 % (0.0-12.0) Eosinophils (%) (Auto) 3.7 % (0.0-7.0) Basophils (%) (Auto) 0.7 % (0.0-2.0) Neutrophils # (Auto) 4.2 10 ^3/uL (1.6-8.6) Lymphocytes # (Auto) 1.7 10 ^3/uL (0.4-5.4) Monocytes # (Auto) 0.8 10 ^3/uL (0-1.3) Eosinophils # (Auto) 0.3 10 ^3/uL (0-0.8) Basophils # (Auto) 0 10 ^3/uL (0-0.2) Nucleated Red Blood Cells 0.1 % Sodium Level 140 mmol/L (136-145) Potassium Level 3.7 mmol/L (3.5-5.1) Chloride Level 104 mmol/L (98-107) Carbon Dioxide Level 28 mmol/L (20-31) Anion Gap 8 (5-15) Blood Urea Nitrogen 20 mg/dL (9-23) Creatinine 1.11 mg/dL (0.700-1.30) Glomerular Filtration Rate Calc 74 mL/min (>90) BUN/Creatinine Ratio 18.0 (10.0-20.0) Serum Glucose 99 mg/dL (74-106) Calcium Level 10.9 mg/dL (8.7-10.4) Total Bilirubin 0.6 mg/dL (0.2-1.0) Aspartate Amino Transferase (AST) 25 U/L (13-40) Alanine Aminotransferase (ALT) 28 U/L (7-40) Alkaline Phosphatase 60 U/L (46-116) B-Type Natriuretic Peptide 17.05 pg/mL (0-100) Total Protein 7.7 g/dL (5.7-8.2) Albumin 4.8 g/dL (3.2-4.8) Other Laboratory Tests 02/24/25 20:06 Brief Hx & Hospital Course: Joe Mendoza is a 64-year-old male with a Past Medical History pertinent for Bladder cancer in remission, Hypertension, Arthritis, Chronic back pain who presented to the hospital with complaint of midsternal chest pain nonradiating x two days. Patient was admitted for further evaluation, monitored in Telemetry. Cardiology consulted. Patient continued supportive treatment to include ASA and Statin therapy. Echocardiogram showed LV EF 65%; normal LV function; normal RV function; no severe valve abnormalities noted; left atrium enlarged mild. EKG was non-significant. Troponin levels were monitored and remained negative. ACS was ruled out. Patient's acute symptoms overall stabilized and improved. He is recommended for outpatient follow up with cardiology. Patient is cleared for discharge to include from cardiology standpoint and is stable at the time of discharge. Physical exam: Vitals and nursing notes reviewed. General Appearance: Cooperative, No acute distress HEENT: NC/AT. EOMI Respiratory: Clear to auscultation, Normal air movement Cardiovascular: Regular rate, Normal S1, Normal S2 Abdominal: Normal bowel sounds. Non-distended, non-tender. Extremities: No cyanosis, No edema, Normal pulses, No tenderness/swelling Skin: No rashes, No breakdown Neuro: Alert, Oriented X3, Normal gait, Strength at 5/5 X4 ext Psych/Mental Status: Mental status NL, Mood NL Consults/Reason for consult Cardiology- Arabella Daniels, resident Operations or Procedures Chest Pain Hypertension Chronic back pain Arthritis Condition at Discharge: Stable Final Diagnosis/Problems List Chest pain resolved, ACS ruled out Discharge Disposition: Home Discharge Instruct/Medications Diet: Cardiac 2g Na,low cholest Activity: No Restrictions, As Tolerated Follow Up/Referral: Cardiology appointment will be scheduled by [facility] [place] [employer] and coordinated with the patient Medications: Continue home medications Discharge Statement: "Patient was advised to return to the ER or call 911 if any headaches, dizziness, shortness of breath, chest pain, abdominal pain, bleeding, fevers, or worsening of medical condition. Patient was counseled about treatment plan, medications, possible side effects, patientverbalized understanding. All questions were answered to the best of my ability. This discharge took greater then 30 minutes in planning, reviewing documentation, counseling the patient, and discussing with other team members." ASSESSMENT ASSESSMENT Assessment Chest pain resolved, ACS ruled out SIMONE JORGE DO February 26, 2025 21:11
== END 2025-02-26 12:30 | disposition home or self-care (01) | DRG 305 ==
LOC: ER 19:55 → OVERFLOW 02-25 02:28 → TELE-WESTW 02-25 23:56
PROVIDERS: ADMIT Internal Medicine Nephrology; ATTEND Internal Medicine Nephrology
DX: I16.0 Hypertensive urgency (principal); G89.29 Other chronic pain; I10 Essential (primary) hypertension; M54.50 Low back pain, unspecified; M54.9 Dorsalgia, unspecified; K80.20 Calculus of gallbladder without cholecystitis without obstruction; Z85.51 Personal history of malignant neoplasm of bladder; Z79.899 Other long term (current) drug therapy; Z87.891 Personal history of nicotine dependence; Z82.49 Family history of ischemic heart disease and other diseases of the circulatory system
CPT/HCPCS: 36415; 71045; 80053; 80061; 81001; 83880; 84484; 85025; 93005; 93306; G0378; J2405